=== PATIENT | male | born 2000 | race Asian ===

== ENCOUNTER 2024-08-14 16:40 | Emergency (ER) | payer OTHER, SELFPAY ==
[2024-08-14 16:43] VITALS: BP 134/82; PULSE 79; RESP 16; TEMP 36.7; O2SAT 99; BMI 29.9
--- NOTE | 2024-08-14 16:48 | ED.GENADULT ---
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 He has noted for the past several days he has had pain in that area because the wisdom tooth is erupting up through the gum. He has been trying to take ibuprofen and acetaminophen for pain but is just not helping. The pain has been keeping him awake at night. He has also noted of the gums are getting a little bit swollen that side. He has pain in that tooth 20 tries to chew food on that side. He has not noted any swelling of his face. He has had some subjective fevers but no objectively measured fever. No pain with swallowing. No trouble breathing. No swelling in his face. He has plans to travel home for the 6 week between [place] on 08/18. He will be traveling home to [facility]. He will probably see his dentist when he gets there. Related Data Home Medications ?Medication ?Instructions ?Recorded ?Confirmed No Known Home Medications 08/14/24 08/14/24 Allergies Allergy/AdvReac Type Severity Reaction Status Date / Time bupropion (From Wellbutrin) Allergy Intermediate Rash Verified 08/14/24 16:49 Exam Narrative: Exam Narrative: Constitutional: Appears well-developed and well-nourished. Active. Non-toxic appearing. HENT: Head: Atraumatic. No signs of injury. Nose: No nasal discharge. Mouth/Throat: Mucous membranes are moist. Tongue is normal. No submandibular swelling or edema. No trismus. Pharynx is normal. Tonsils symmetric. Uvula midline. Airway patent. Generally good dentition. He does appear to have an erupting wisdom tooth affecting the gums in the posterior right mandible. The gums there are inflamed there is also a little bit of granulation tissue and a small amount of purulent drainage. There is no palpable or visible gingival abscess. No swelling of the patient's right cheek. No signs of spreading infection into the pharyngeal tissues. Eyes: Conjunctivae normal and EOM are normal. Pupils are equal, round, and reactive to light. Right eye exhibits no discharge. Left eye exhibits no discharge. No icterus. Neck: Normal range of motion. Neck supple. No adenopathy. No stridor. Cardiovascular: Normal rate and regular rhythm. No murmur heard. No murmurs, rubs, or gallops. Brisk capillary refill Pulmonary/Chest: Effort normal. No stridor. No respiratory distress. No wheezes.No rhonchi. No rales. Musculoskeletal: Normal range of motion. No edema. No tenderness. No deformity. Neurological: Alert. Normal strength. No cranial nerve deficit or sensory deficit. Coordination normal. GCS eye subscore is 4. GCS verbal subscore is 5. GCS motor subscore is 6. Skin: Skin is warm. No rash noted. Const: Vital Signs, click to edit/add: Vital Signs - 24 hr 08/14/24 16:43 Temperature 98.1 F Pulse Rate [Pulse Oximeter] 79 Respiratory Rate 16 Blood Pressure [Ri ght Upper Arm] 134/82 Pulse Oximetry 99 Oxygen Delivery Me thod Room Air Course Vital Signs Vital signs: Initial Vital Signs Temperature 98.1 F 08/14/24 16:43 Temperature Source Temporal Artery Scan 08/14/24 16:43 Pulse Rate 79 08/14/24 16:43 Respiratory Rate 16 08/14/24 16:43 Blood Pressure 134/82 08/14/24 16:43 Blood Pressure Mean 99 08/14/24 16:43 Blood Pressure Position Sitting 08/14/24 16:43 Pulse Oximetry 99 08/14/24 16:43 Oxygen Delivery Method Room Air 08/14/24 16:43 Vital Signs Temperature 98.1 F 08/14/24 16:43 Pulse Rate 79 08/14/24 16:43 Respiratory Rate 16 08/14/24 16:43 Blood Pressure 134/82 08/14/24 16:43 Pulse Oximetry 99 08/14/24 16:43 Oxygen Delivery Method Room Air 08/14/24 16:43 Temperature 98.1 F 08/14/24 16:43 Pulse Rate 79 08/14/24 16:43 Respiratory Rate 16 08/14/24 16:43 Blood Pressure 134/82 08/14/24 16:43 Pulse Oximetry 99 08/14/24 16:43 Oxygen Delivery Method Room Air 08/14/24 16:43 Medical Decision Making MDM Narrative Medical decision making narrative: This patient presents with a tooth ache on his right mandible from an erupting wisdom tooth on that side. The differential diagnosis includes: cracked tooth syndrome, pulpitis, sub-apical abscess, amongst others. He does have some macerated tissue in it is unclear to me whether that that macerated purulent tissue his simply due to the are opting to the or whether not a could represent a possible evolving infection. Will start the patient on penicillin VK to treat/prevent progression of infection. There is no abscess detected around the tooth amenable to incision and drainage. There is no evidence of buccinator/canine space infections, significant facial swelling, or Dev's angina. There are no posterior pharyngeal space infections detected. Suspect pulpitis. Treatment with NSAID, antibiotics. Follow up with a dentist/sas analyst in the coming days is indicated for further work up and treatment. Instructions for return to the ER were reviewed with the patient. Prescription for Bath provided through [facility]-12 tablets. Discussed opiate precautions sedation. Discussed appropriate dosing of acetaminophen, ibuprofen. Discussed max acetaminophen dose per day and avoidance of doubling up with Bath and other Tylenol. Patient and his friend verbalized understanding. They were comfortable discharging to home. Discharge Plan Discharge Prescriptions: No Action No Known Home Medications
== END 2024-08-14 17:33 | disposition home or self-care (01) ==
LOC: ED 17:27
PROVIDERS: Emergency Provider Emergency Medicine; PCP Family Medicine
DX: K08.89 Other specified disorders of teeth and supporting structures (principal)
CPT/HCPCS: 99282; 99283